=== PATIENT | female | born 1970 | race Caucasian/White ===

== ENCOUNTER 2025-01-29 10:01 | Emergency (ER) | payer BC, SELFPAY ==
[2025-01-29 10:03] VITALS: BP 123/74
--- NOTE | 2025-01-29 10:48 | ED.GENMED ---
History of Present Illness
General
Chief Complaint: Abdominal Pain
Source: patient
Exam Limitations: none
Time Seen by Provider: 01/29/25 10:47
Nursing documentation reviewed up to this point in time: agreed with
History of Present Illness
History of Present Illness:
54 yo female w no significant pmhx presents with left groin stabbing sharp pains past 2 days. 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 Saw PCP and has out pt rx for US stating
she wonder's if it's an ovarian cyst. she has backed off of intense exercises for a couple of months, but started up with very intense boot camp 1.5 months ago. Pain got so bad past 2 days she cannot wait until later this week when US is scheduled.
Past History
Social History
Tobacco: Non-smoker
Alcohol: Occasional
Drug: None
Personal:
Living: with family
Employment: Employed
Family History
Family History: Other (PE); Negative Early CAD
Review of Systems
Review of Systems
Allergies reviewed?: Yes
All Other Systems: ROS reviewed and negative except as documented in HPI and ROS
ABD/GI: Denies abdominal pain, nausea or constipated
: Denies dysuria, frequency, flank pain or difficulty voiding
Musculoskeletal: Reports other (left groin pain)
Skin: Reports no symptoms
Phy Exam
Physical Exam
Physical Exam:
GENERAL: No acute distress. A&Ox3.
CONSTITUTIONAL: Afebrile.
RESPIRATORY: Regular respirations, nonlabored, lungs clear.
CARDIOVASCULAR: Regular rate and rhythm, no murmurs, no rubs.
GI: Soft, nontender, normal BS
MUSCULOSKELETAL: Point tender mid left groin over the ligament, no swelling, redness, mildly palpable lymph nodes. Palpation of this area immediately reproduces pain, no pain above or below it. Pain aggravated with lifting the leg. Consistent with
musculoskeletal/ligament pain. Moves with ease. Well perfused.
SKIN: Warm, dry, pink
PSYCH: Normal mood and affect. Well kept, interactive and appropriate
NEUROLOGIC: Awake, alert and oriented. No focal neurological deficits
Course
Orders/Labs/Results
Orders:
Orders
01/29/25 11:29
US Groin (Imaging Only) LT Urgent
Reason For Exam: pain past 2 days, point tender
Vital Signs
Initial and Last Documented VS:
Initial Vital Signs
Temp Pulse Resp BP Pulse Ox
98.2 F 68 16 123/74 98
01/29/25 10:03 01/29/25 10:03 01/29/25 10:03 01/29/25 10:03 01/29/25 10:03
Last Documented Vital Signs
Temp Pulse Resp BP Pulse Ox
98.2 F 61 16 111/74 98
01/29/25 10:03 01/29/25 12:56 01/29/25 10:03 01/29/25 12:56 01/29/25 10:50
MDM/Problems Addressed
Differential Diagnosis Includes:
groin strain, hernia, lymphadenopathy
MDM/Problems Addressed:
54 yo female w no significant pmhx presents with left groin stabbing sharp pains past 2 days. 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 Saw PCP and has out pt rx for US stating
she wonder's if it's an ovarian cyst. she has backed off of intense exercises for a couple of months, but started up with very intense boot camp 1.5 months ago. Pain got so bad past 2 days she cannot wait until later this week when US is scheduled.
Groin US is unremarkable: IMPRESSION: 2 lymph nodes are identified within the left groin, within normal limits of size, and having benign fatty nicole.
Pt reassured. NO abdominal symptoms, abdomen benign. No indication for pelvic/abdominal US/CT
*Pulse Oximetry
SaO2: 98
Oxygen Mode of Delivery: Room air
Patient hypoxic: not evaluated
*Critical Care Note
Total Time (30-74mins, 75-104mins- exclusive of procedures): Not Applicable
ED Attending Note
-
Portions of this chart may have been created with voice recognition software.� Occasional wrong word or��sound alike� substitutions may have occurred due to the inherent limitations of voice recognition software.
Discharge Plan
Departure
Patient Disposition: Home (Routine Discharge)
Date of Disposition: 01/29/25
Time of Disposition: 12:43
Patient with high blood pressure during this ER visit?: No
Condition: Good
Discharge Problem:
Left inguinal pain
Instructions: Groin Strain (DC)
Prescriptions:
No Action
ibuprofen 600 MG tablet
600 mg PO Q6 PRN (Reason: pain) Qty: 20 0RF
diazepam 2 MG tablet
2 mg PO TIDPRN PRN (Reason: pain) Qty: 10 0RF
Referrals:
Rebecca Mccollum CRNP [Family Provider, Family Practice] - As needed
Activity Restrictions/Additional Instructions:
As we discussed, your ultrasound shows nothing worrisome.
You most likely have a pulled ligament in your groin that keeps getting re-aggravated by your high level of activity.
After day of high-level activity, put cold compress on the area 20 minutes off and on to reduce swelling
Ibuprofen 600 mg, with food, every 6 hours as needed for pain.
Avoid activity that aggravates the pain
Back down on your high level activity until the area is better
Interventions
Interventions:
*Risk Screen - Suicide Last Done: 01/29/25 10:03
*General Assessment Last Done: 01/29/25 11:35
*Neglect/Abuse Screening Last Done: 01/29/25 10:03
*ED- Fall Risk Assessment Last Done: 01/29/25 11:35
*ED COVID-19 Vaccine History Last Done: 01/29/25 11:35
*Nursing Disposition Last Done: 01/29/25 12:56
JQ-[id number]-Kjzmmhkdfs Assessment Last Done: 01/29/25 11:36
Discharge Date and Time
Discharge Date/Time: 01/29/25 13:06
Print Language: MONGOLIAN
[2025-01-29 11:35] VITALS: BMI 27.5
[2025-01-29 12:56] VITALS: BP 111/74
== END 2025-01-29 13:06 | disposition home or self-care (01) ==
LOC: EMR 10:01
PROVIDERS: EMERGENCY PHYSICIAN Student in an Organized Health Care Education/Training Program; FAMILY PHYSICIAN Nurse Practitioner Family
DX: R10.32 Left lower quadrant pain (principal)
CPT/HCPCS: 99284; 76882

== ENCOUNTER → 2025-03-18 13:51 | Outpatient (REF) | payer BC, SELFPAY | LOC: HWWDC 13:51 | PROVIDERS: ATTENDING PHYSICIAN Nurse Practitioner Family | DX: Z12.31 Encounter for screening mammogram for malignant neoplasm of breast (principal) | CPT/HCPCS: 77063; 77067 ==